=== PATIENT | male | born 1985 | race Caucasian/White ===

== ENCOUNTER 2018-09-22 23:43 | Emergency (ER) | payer SELFPAY ==
[~2018-09-22] VITALS: Ht 185.4 cm; Wt 83.9 kg
[2018-09-22 23:55] VITALS: BP_SYST 139
[2018-09-23] MEDS ORDERED: NACL 0.9% 1,000 ML IV ONE (00:15)
[2018-09-23] MEDS ORDERED: KETOROLAC TROMETHAMINE 30 MG VIAL IVP ONE (00:15)
[2018-09-23] MEDS ORDERED: ONDANSETRON HCL 4 MG/2 ML VIAL IVP ONE (00:15)
[2018-09-23] MEDS ORDERED: ONDANSETRON 4 MG ODT TAB PO ONE (00:30)
[2018-09-23] MEDS ORDERED: IBUPROFEN 800 MG TABLET PO ONE (01:30)
[2018-09-23 06:39] VITALS: BP_SYST 122
== END 2018-09-23 06:39 | disposition home or self-care (01) ==
LOC: SED 23:43
DX: R11.2 Nausea with vomiting, unspecified (principal); R19.7 Diarrhea, unspecified; R51 Headache
CPT/HCPCS: 99283; Q0162